=== PATIENT | male | born 1970 | race Caucasian/White ===

== ENCOUNTER → 2023-10-16 06:42 | Outpatient (REF) | payer OTHER, SELFPAY ==
[2023-10-16] MEDS: LEXISCAN 0.400000000000000022 MG IV (08:39)
[2023-10-16] MEDS: FLUSH (NSS) 1 FLUSH IV (08:40)
== END ==
LOC: RCS 06:42
PROVIDERS: ATTENDING PHYSICIAN Nuclear Medicine Nuclear Cardiology; FAMILY PHYSICIAN Physician Assistant Medical
DX: I25.10 Atherosclerotic heart disease of native coronary artery without angina pectoris (principal); R06.09 Other forms of dyspnea
CPT/HCPCS: 78452; 93017; A9500; J2785

== ENCOUNTER → 2023-10-29 07:21 | Outpatient (REF) | payer OTHER, SELFPAY ==
--- NOTE | 2023-10-29 08:30 | CARDSERVDEF ---
Echocardiogram with Definity completed after protocol screening completed. Allergies verified.
Patent IV site: _Right forearm 22 G PC site clear, rapid blood return____
IV site flushed with 0.9% NaCl pre and post administration.
Diluted bolus method utilized to enhance visualization of ventricular julian.
Total volume given: __5__ mL
Patient tolerated all procedures well without complications.
Heplock D/Mack at 0830, site clear, no redness, no edema. Pressure held, no bleeding. 2x2 applied and taped. Pt offers no complaints.
== END ==
LOC: RCS 07:21
PROVIDERS: ATTENDING PHYSICIAN Nuclear Medicine Nuclear Cardiology; FAMILY PHYSICIAN Physician Assistant Medical
DX: I25.10 Atherosclerotic heart disease of native coronary artery without angina pectoris (principal); R06.09 Other forms of dyspnea
CPT/HCPCS: 93307; Q9957

== ENCOUNTER → 2024-11-16 12:38 | Outpatient (REF) | payer OTHER, SELFPAY | LOC: RCS 12:38 | PROVIDERS: ATTENDING PHYSICIAN Nuclear Medicine Nuclear Cardiology; FAMILY PHYSICIAN Physician Assistant Medical | DX: E78.2 Mixed hyperlipidemia (principal); I25.10 Atherosclerotic heart disease of native coronary artery without angina pectoris; R06.09 Other forms of dyspnea | CPT/HCPCS: 93306; Q9950 ==

== ENCOUNTER → 2025-07-27 09:20 | Outpatient (REF) | payer OTHER, SELFPAY | LOC: RAD 09:20 | PROVIDERS: ATTENDING PHYSICIAN Nurse Practitioner Family; FAMILY PHYSICIAN Physician Assistant Medical | DX: E83.52 Hypercalcemia (principal) | CPT/HCPCS: 76536; 77080 ==

== ENCOUNTER → 2025-08-14 08:35 | Outpatient (REF) | payer OTHER, SELFPAY | LOC: RAD 08:35 | PROVIDERS: ATTENDING PHYSICIAN Nurse Practitioner Family; FAMILY PHYSICIAN Physician Assistant Medical | DX: E83.52 Hypercalcemia (principal) | CPT/HCPCS: 78071; A9500 ==